=== PATIENT | female | born 1990 | race Caucasian/White ===

== ENCOUNTER 2017-07-07 08:02 | Emergency (ER) | payer OTHER ==
[~2017-07-07] VITALS: Ht 154.9 cm; Wt 58.5 kg
[2017-07-07] MEDS ORDERED: GABA300C10 PO (08:38)
[2017-07-07] MEDS ORDERED: TRAM50TA2 PO (08:38)
[2017-07-07 08:45] LABS: HEMATOCRIT 38.9 % (34.6-47.8); HEMOGLOBIN 12.9 g/dL (11.7-16.4); WHITE BLOOD COUNT 5.2 x10^3/uL (3.4-10)
[2017-07-07 10:06] VITALS: BP 119/84
== END 2017-07-07 10:08 | disposition home or self-care (01) ==
LOC: ED 09:04
DX: O26.891 Other specified pregnancy related conditions, first trimester (principal); S39.012A Strain of muscle, fascia and tendon of lower back, initial encounter; N83.202 Unspecified ovarian cyst, left side; Z3A.00 Weeks of gestation of pregnancy not specified; O34.81 Maternal care for other abnormalities of pelvic organs, first trimester; X58.XXXA Exposure to other specified factors, initial encounter; Y93.89 Activity, other specified; Y99.8 Other external cause status; Y92.89 Other specified places as the place of occurrence of the external cause
CPT/HCPCS: 36415; 76830; 81003; 84702; 85025; 86901; 99285

== ENCOUNTER 2017-07-09 08:12 | Emergency (ER) | payer OTHER ==
[~2017-07-09] VITALS: Ht 154.9 cm; Wt 58.5 kg
[~2017-07-09 08:12] MED LIST: GABA300C10 PO; TRAM50TA2 PO
[2017-07-09 08:15] VITALS: BP 100/66
[2017-07-09 09:12] LABS: BLOOD UREA NITROGEN 10 mg/dL (7-18)
[2017-07-09 09:29] LABS: HEMATOCRIT 38.9 % (34.6-47.8); HEMOGLOBIN 12.9 g/dL (11.7-16.4); WHITE BLOOD COUNT 6.3 x10^3/uL (3.4-10)
== END 2017-07-09 11:09 | disposition home or self-care (01) ==
LOC: ED 08:40
DX: N83.202 Unspecified ovarian cyst, left side (principal)
CPT/HCPCS: 36415; 80048; 81003; 82040; 84702; 85025; 99284